=== PATIENT | male | born 1940 ===

== ENCOUNTER 2018-06-05 05:50 | Day surgery (SDC) | payer OTHER ==
[~2018-06-05 05:50] MED LIST: LOSARTAN-HCTZ1 EAC2 PO; NORVASC5 MG PO; SPIRIVA RESPIMAT4 G1 IH
[2018-06-05] MEDS ORDERED: ULTRACET PO (11:20)
== END 2018-06-05 13:05 | disposition home or self-care (01) ==
LOC: CIR.AMB 05:50
DX: R15.9 Full incontinence of feces (principal)
CPT/HCPCS: 64581; C1778

== ENCOUNTER 2018-06-19 05:00 | Day surgery (SDC) | payer OTHER ==
[~2018-06-19 05:00] MED LIST changes: +ULTRACET PO
[2018-06-19] MEDS ORDERED: TYLENOL ARTHRI650 MG PO (07:55)
== END 2018-06-19 10:15 | disposition home or self-care (01) ==
LOC: CIR.AMB 05:00
DX: R15.9 Full incontinence of feces (principal)
CPT/HCPCS: 64590; C1767

== ENCOUNTER 2024-11-05 09:09 | Day surgery (SDC) | payer OTHER ==
[2024-11-02 13:01] VITALS: BP 160/70
[~2024-11-05] VITALS: Ht 167.6 cm; Wt 69.4 kg
[~2024-11-05 09:09] MED LIST changes: +TYLENOL ARTHRI650 MG PO
[2024-11-05] MEDS ORDERED: CEFAZOLIN SODIUM 1,000 MG VIAL ONE (11:11)
[2024-11-05] MEDS ORDERED: BUPIVACAINE HCL/MPF 0.5% 30ML VIAL ONE (13:20)
[2024-11-05] MEDS ORDERED: LIDOCAINE HCL 1%/EPINEPHRINE 20ML VIAL IJ ONE (13:21)
[2024-11-05] MEDS ORDERED: TRAM1TAB98 PO (14:25)
== END 2024-11-05 15:25 | disposition home or self-care (01) ==
LOC: CIR.AMB 09:09
PROVIDERS: ATTEND Surgery
DX: R15.9 Full incontinence of feces (principal); K62.3 Rectal prolapse; I10 Essential (primary) hypertension; J45.909 Unspecified asthma, uncomplicated; E78.5 Hyperlipidemia, unspecified; M19.90 Unspecified osteoarthritis, unspecified site
CPT/HCPCS: 64590; 95972; C1767